=== PATIENT | male | born 1965 | race Caucasian/White ===

== ENCOUNTER 2019-06-16 14:36 | Emergency (ER) | payer OTHER ==
--- NOTE | 2019-06-16 14:59 | ED ---
Laceration/Wound HPI - HPI Summary HPI Summary: The patient is a 53 y/o M presenting to [facility] accompanied by with a chief complaint of a laceration to the right third finger this afternoon. He reports that he was using a table saw when he cut his right third digit causing bleeding that is now controlled and bandaged. He denies any numbness in the finger. He additionally has a small laceration on the right fourth digit that is not bleeding now. His current pain is rated 5/10 in severity. Last tetanus was approximately 3-4 months ago at PCP's office. No PMHx. Nonsmoker, daily EtOH , no substance use. Medications reviewed. Allergies noted. - History of Current Complaint Stated Complaint: FINGER LAC PER PT Time Seen by Provider: 06/16/19 14:46 Hx Obtained From: Patient Mechanism of Injury: Sharp/Blunt Trauma - cut on table saw Onset/Duration: Sudden Onset, Still Present Aggravating: Nothing Alleviating: Compression Onset Severity: Moderate Current Severity: Moderate Pain Intensity: 5 Pain Scale Used: 0-10 Numeric Associated Signs & Symptoms: Pain - Allergy/Home Medications Allergies/Adverse Reactions: Allergies Allergy/AdvReac Type Severity Reaction Status Date / Time codeine Allergy Unknown Verified 06/16/19 14:42 Reaction Details PMH/Surg Hx/FS Hx/Imm Hx Endocrine/Hematology History: Denies: Hx Diabetes Cardiovascular History: Denies: Hx Hypercholesterolemia, Hx Hypertension - Surgical History Surgical History: None Surgery Procedure, Year, and Place: none Infectious Disease History: No Infectious Disease History: Denies: Traveled Outside the [place] in Last 30 Days - Family History Known Family History: Negative: Hypertension, Diabetes - Social History Alcohol Use: Daily Hx Substance Use: No Substance Use Type: Reports: None Hx Tobacco Use: No Smoking Status (MU): Never Smoked Tobacco Review of Systems Positive: Other - small laceration to the right fourth finger, laceration to the right third finger with active bleeding Negative: Numbness All Other Systems Reviewed And Are Negative: Yes Physical Exam - Summary Physical Exam Summary: VITAL SIGNS: Reviewed. GENERAL: Patient is a well-developed and nourished male who is lying comfortable in the stretcher. Patient is not in any acute respiratory distress. HEAD AND FACE: No signs of trauma. No ecchymosis, hematomas or skull depressions. No sinus tenderness. EYES: PERRLA, EOMI x 2, No injected conjunctiva, no nystagmus. EARS: Hearing grossly intact. Ear canals and tympanic membranes are within normal limits. MOUTH: Oropharynx within normal limits. NECK: Supple, trachea is midline, no adenopathy, no JVD, no carotid bruit, no c- spine tenderness, neck with full ROM. CHEST: Symmetric, no tenderness at palpation. LUNGS: Clear to auscultation bilaterally. No wheezing or crackles. CVS: Regular rate and rhythm, S1 and S2 present, no murmurs or gallops appreciated. ABDOMEN: Soft, non-tender. No signs of distention. No rebound, no guarding, and no masses palpated. Bowel sounds are normal. EXTREMITIES: FROM in all major joints, no edema, no cyanosis or clubbing. NEURO: Alert and oriented x 3. No acute neurological deficits. Speech is normal and follows commands. SKIN: Dry and warm. Laceration on the right middle finger with a lot of contused tissue and missing skin. Triage Information Reviewed: Yes Vital Signs On Initial Exam: Initial Vitals Temp Pulse Resp BP Pulse Ox 98.3 F 70 14 133/86 99 06/16/19 14:38 06/16/19 14:38 06/16/19 14:38 06/16/19 14:38 06/16/19 14:38 Vital Signs Reviewed: Yes Procedures - Procedure Summary Procedure Summary: Laceration Repair: Right middle finger. Unable to place approximation sutures secondary to contused tissue and missing skin. Wound was irrigated with normal saline and cleaned. A non-adhesive bandage was applied to the wound. He declined x-rays. Patient will be placed on antibiotics to prevent infection. He will follow up with hand surgeon. - Sedation Patient Received Moderate/Deep Sedation with Procedure: No Diagnostics - Vital Signs Vital Signs Temp Pulse Resp BP Pulse Ox 06/16/19 14:38 98.3 F 70 14 133/86 99 - Laboratory Lab Statement: Any lab studies that have been ordered have been reviewed, and results considered in the medical decision making process. Re-Evaluation - Re-Evaluation First Eval Re-Evaluation Time: 15:45 Comment: Patient declines x-ray imaging at this time. Second Eval Re-Evaluation Time: 16:30 Change: Improved Comment: Laceration cleaned (see note). We discussed plan. Laceration Repair Course/Dx - Course Assessment/Plan: Patient is a 54-year-old male who presents to the emergency room with a laceration in the right middle finger with a table saw. The laceration has a little contused tissue and skin missing; therefore, I will unable to place approximation sutures. The wound was irrigated with normal saline. I apply non-adhesive bandage. The patient declined x-rays to rule out any type of fracture. However, I did give the patient Rocephin to cover any type of infection. The patient will be discharged home with a prescription for Keflex and will follow-up with hand surgery. At this point the patient understands their importance of following up with hand surgery. Patient is hemodynamically stable alert oriented 3. - Clinical Impression Provider Diagnoses: Laceration Discharge ED - Sign-Out/Discharge Documenting (check all that apply): Patient Departure - Patient will be discharged home. - Discharge Plan Condition: Stable Disposition: HOME Prescriptions: Cephalexin CAP* [Keflex CAP*] 500 mg PO TID #30 cap Patient Education Materials: Finger Laceration (ED) Referrals: Beto Myers MD [Medical Doctor] - 2 Days Lorraine Zamarripa MD [Primary Care Provider] - 3 Days Additional Instructions: Please take medications as prescribed. Follow up with Dr. Myers for consultation for hand surgery. Follow up with your primary care provider in 2-3 days. Return to the emergency department for any new or worsening symptoms. - Billing Disposition and Condition Condition: STABLE Disposition: Home - Attestation Statements Document Initiated by Luis Manuel: Yes Documenting Scribe: Tete Alsa Provider For Whom Luis Manuel is Documenting (Include Credential): Dr. Bong Pike MD Scribe Attestation: Tete Abarca scribed for Dr. Bong Pike MD on 06/17/19 at 1144. Scribe Documentation Reviewed: Yes Provider Attestation: The documentation as recorded by the Tete valero accurately reflects the service I personally performed and the decisions made by me, Dr. Bong Pike MD Status of Sc[employer]ate[employer] Document: Viewed
[2019-06-16] MEDS ORDERED: cefTRIAXone(*) 1 GM in NS 0.9% 50 ML* 50 ML IVPB ONE (16:35)
[2019-06-16 19:18] VITALS: BP 117/80
== END 2019-06-16 18:00 | disposition home or self-care (01) ==
LOC: ED 14:36
DX: S61.212A Laceration without foreign body of right middle finger without damage to nail, initial encounter (principal); W31.2XXA Contact with powered woodworking and forming machines, initial encounter; Y92.9 Unspecified place or not applicable; Z88.5 Allergy status to narcotic agent
CPT/HCPCS: 96365; 99282; J0696